=== PATIENT | male | born 1995 | race Caucasian/White ===

== ENCOUNTER 2017-09-08 13:32 | Day surgery (SDC) | payer OTHER ==
[2017-09-07 15:41] VITALS: BMI 19.3
[2017-09-08] VITALS (15 sets, daily range): BP systolic 93–116; BP diastolic 58–74; PULSE 68–86; RESP 16–18; Ht 170.2 cm; Wt 58.5 kg
[~2017-09-08] VITALS: Ht 170.2 cm; Wt 58.5 kg
[~2017-09-08 13:32] MED LIST: LACTATED RINGER'S 1,000 ML IV* SCH
[2017-09-08] MEDS ORDERED: LAMO200T PO (14:03)
[2017-09-08] MEDS ORDERED: AMPH5CAP PO (14:06)
[2017-09-08] MEDS ORDERED: SERT-165 PO (14:07)
[2017-09-08] MEDS ORDERED: OLAN10TA7 PO (14:10)
[2017-09-08] MEDS ORDERED: BUPIVACAINE 0.5% (SDV) 30 ML INJ ONE (15:13)
[2017-09-08] MEDS ORDERED: LIDOCAINE 1% (MPF) 30 ML INJ ONE (15:13)
--- NOTE | 2017-09-08 15:18 | HPN ---
Date/Time of Note Date/Time of Note DATE: 09/08/17 TIME: 15:17 Interval H&P Admission Note Pt. seen H&P reviewed: No system changes TATA AHSTINGS Sep 08, 2017 15:18
[2017-09-08] MEDS ORDERED: FENTAnyl 50 MCG/ML VIAL ONE ×2 (15:30→15:44)
[2017-09-08] MEDS ORDERED: MIDAZOLAM 1 MG/ML 2 ML INJ ONE (15:30)
[2017-09-08] MEDS ORDERED: CEFAZOLIN 1 GM INJ ONE (16:02)
[2017-09-08] MEDS ORDERED: PROPOFOL 40 ML ONE (16:02)
[2017-09-08] MEDS ORDERED: LIDOCAINE 2% (SDV) 5 ML INJ ONE (16:02)
[2017-09-08] MEDS ORDERED: ONDANSETRON 4 MG INJ ONE (16:02)
--- NOTE | 2017-09-08 16:06 | OPPN ---
Date/Time of Note Date/Time of Note DATE: 09/08/17 TIME: 16:05 Operative Report Preoperative Diagnosis right carpal tunnel syndrome Postoperative Diagnosis right carpal tunnel syndrome Operation/Procedure Performed right carpal tunnel release, open Surgeon see signature line market research assistant none Anesthesia: general Estimated blood loss: 0 - 10 ml's Transfusion Required none Specimen none Grafts/Implants none Complications none TATA HASTINGS Sep 08, 2017 16:06
[2017-09-08] MEDS ORDERED: HYDROCODONE/APAP (5/325) TAB PO PRN (17:00)
--- NOTE | 2017-09-08 19:27 | OPR ---
DATE OF OPERATION: 09/08/2017 SURGEON: Zac Carlos MD ANESTHESIA: General plus local. PREOPERATIVE DIAGNOSIS: Right carpal tunnel syndrome. POSTOPERATIVE DIAGNOSIS: Right carpal tunnel syndrome. PROCEDURE: Right carpal tunnel release, open. OPERATIVE FINDINGS: Compression of the median nerve at the carpal tunnel. INDICATION FOR PROCEDURE: A 21-year-old male with longstanding right upper extremity carpal tunnel symptoms. He had temporary relief with an injection of the carpal tunnel, but symptoms returned. Given the improvement with diagnostic carpal tunnel injection and return of symptoms, patient elected to proceed with surgical intervention understanding the risks and benefits. DESCRIPTION OF PROCEDURE: The patient was seen in preoperative area and all further questions were answered. Again, he gave informed consent understanding the risks and benefits. He was taken to the operative suite and placed in supine position. The patient was placed under general anesthesia and tourniquet placed on right upper extremity. Right upper extremity was prepped with ChloraPrep stick and draped in the usual sterile fashion. Ancef 2 g IV administered and Esmarch bandage was used to exsanguinate the extremity and tourniquet inflated to 250 mmHg. A 2 cm incision at the base of the palm was utilized with sharp dissection, carried down through skin and subcutaneous tissue. The palmar aponeurosis was identified and was incised along its ulnar border. Retractors deepened and the transverse carpal ligament was identified and was incised along its ulnar border approximately 3 mm radial to the hook of the hamate. Attention turned distally and the distal extent of the transverse carpal ligament was divided. Attention turned proximally and the proximal extent of the transverse carpal ligament was divided. The wound was copiously irrigated. Skin closed with 4-0 nylon. Xeroform placed over the wound followed by sterile gauze, Webril, and bias dressing. The patient was awakened from anesthesia and taken to the postoperative suite in stable condition. He tolerated the procedure well without complication. SPECIMENS: None. ESTIMATED BLOOD LOSS: 5 cc. COUNTS: Sponge and needle counts correct. TOURNIQUET TIME: Thirteen minutes. CONDITION ON DISCHARGE: Stable. Dictated By: Zac Carlos MD /[email or web address] /Document#: [id number]
== END 2017-09-08 18:11 | disposition home or self-care (01) ==
LOC: SDS 13:32
PROVIDERS: ATTEND Orthopaedic Surgery Hand Surgery
DX: G56.01 Carpal tunnel syndrome, right upper limb (principal)
CPT/HCPCS: 64721; J0690; J2250; J2405; J3010

== ENCOUNTER 2017-10-20 09:36 | Day surgery (SDC) | payer OTHER ==
[~2017-10-20] VITALS: Ht 170.2 cm; Wt 60.0 kg
[~2017-10-20 09:36] MED LIST changes: +AMPH5CAP PO; -LACTATED RINGER'S 1,000 ML IV* SCH; +LAMO200T PO; +OLAN10TA7 PO; +SERT-165 PO
[2017-10-20 10:13] VITALS: Ht 170.2 cm; Wt 60.0 kg
[2017-10-20 10:14] VITALS: BP 113/70; PULSE 74; RESP 16
[2017-10-20] MEDS ORDERED: BUPIVACAINE 0.5% (SDV) 30 ML INJ ONE (11:07)
[2017-10-20] MEDS ORDERED: LIDOCAINE 1% (MPF) 30 ML INJ ONE (11:07)
--- NOTE | 2017-10-20 11:21 | HPN ---
Date/Time of Note Date/Time of Note DATE: 10/20/17 TIME: 11:21 Interval H&P Admission Note Pt. seen H&P reviewed: No system changes TATA HASTINGS Oct 20, 2017 11:21
[2017-10-20] MEDS ORDERED: LIDOCAINE 2% (SDV) 5 ML INJ ONE (11:27)
[2017-10-20] MEDS ORDERED: PROPOFOL 20 ML ONE (11:27)
[2017-10-20] MEDS ORDERED: MEPERIDINE 100 MG INJ ONE (11:27)
[2017-10-20] MEDS ORDERED: CEFAZOLIN 1 GM INJ ONE (11:53)
[2017-10-20] MEDS ORDERED: ONDANSETRON 4 MG INJ ONE (11:58)
--- NOTE | 2017-10-20 12:17 | OPPN ---
Date/Time of Note Date/Time of Note DATE: 10/20/17 TIME: 12:16 Operative Report Preoperative Diagnosis left carpal tunnel syndrome Postoperative Diagnosis left carpal tunnel syndrome Operation/Procedure Performed left carpal tunnel release, open Surgeon see signature line nurses assistant none Anesthesia: general Estimated blood loss: 0 - 10 ml's Transfusion Required none Specimen none Grafts/Implants none Complications none TATA HASTINGS Oct 20, 2017 12:17
[2017-10-20 12:18] VITALS: BP 97/55; PULSE 80; RESP 16
[2017-10-20 12:23] VITALS: BP 96/49; PULSE 72; RESP 15
[2017-10-20 12:28] VITALS: BP 97/55; PULSE 88; RESP 23
[2017-10-20 12:33] VITALS: BP 99/49; PULSE 78; RESP 15
[2017-10-20] MEDS ORDERED: FENTAnyl 50 MCG/ML VIAL ONE (12:49)
[2017-10-20 13:16] VITALS: BP 120/67; PULSE 86; RESP 16
--- NOTE | 2017-10-20 13:54 | OPR ---
DATE OF OPERATION: 10/20/2017 SURGEON: Zac Carlos MD ANESTHESIA: General. PREOPERATIVE DIAGNOSIS: Left carpal tunnel syndrome. POSTOPERATIVE DIAGNOSIS: Left carpal tunnel syndrome. PROCEDURE: Left carpal tunnel release, open. OPERATIVE FINDINGS AT SURGERY: Compression of the median nerve at the carpal tunnel. INDICATION FOR PROCEDURE: A 22-year-old male with longstanding bilateral hand carpal tunnel symptoms. He underwent right-sided carpal tunnel release previously and had significant improvement in his symptoms with near complete resolution. Given the same symptoms on the left side patient elected to proceed with surgical intervention understanding the risks and benefits. DESCRIPTION OF PROCEDURE: The patient was seen in the preoperative are and all further questions were answered. Again, he gave informed consent understanding the risks and benefits. He was taken to the operative suite and placed in supine position. He was placed under general anesthesia and tourniquet placed on left upper extremity. Ancef 2 gram IV given and the left upper extremity was prepped with ChloraPrep stick and draped in the usual sterile fashion. Esmarch bandage was used to exsanguinate the extremity and tourniquet inflated to 250 mmHg. A 2 cm incision at the base of the palm was utilized with sharp dissection carried down through skin and subcutaneous tissue. The palmar aponeurosis was incised along its ulnar border and retractors were deepened. The transverse carpal ligament was identified and was incised along its ulnar border approximately 3 mm radial to the hook of the hamate. Retractor placed distally and the distal extent of the transverse carpal ligament was divided under direct visualization. Attention turned proximally at the proximal extent of the transverse carpal ligament was divided under direct visualization. Wound was copiously irrigated. Skin closed with 4-0 nylon. Xeroform placed wound followed by sterile gauze, Webril, and bias dressing. Tourniquet deflated after 11 minutes. The patient was awakened from anesthesia. He was taken the postoperative suite in stable condition. Tolerated procedure well without complications. SPECIMENS: None. ESTIMATED BLOOD LOSS: 5 mL. COUNTS: Sponge, instrument, needle counts correct. TOURNIQUET TIME: 11 minutes. CONDITION ON DISCHARGE: Stable. Dictated By: Zac Carlos MD /[email or web address] /Document#: [id number]
[2017-10-20] MEDS ORDERED: HYDROCODONE/APAP (5/325) TAB PO PRN (14:00)
== END 2017-10-20 13:58 | disposition home or self-care (01) ==
LOC: SDS 09:36
PROVIDERS: ATTEND Orthopaedic Surgery Hand Surgery
DX: G56.02 Carpal tunnel syndrome, left upper limb (principal)
CPT/HCPCS: 64721; J0690; J2175; J2405; J3010